=== PATIENT | male | born 1950 | race Two or more races ===

== ENCOUNTER 2023-09-27 16:28 | Inpatient (IN) | payer OTHER ==
[2023-09-27 20:29] VITALS: BMI 26.6
[2023-09-27] MEDS ORDERED: guaiFENesin 600 MG TABLET.ER (FP) PO PRN (21:46)
[2023-09-27] MEDS ORDERED: POLYETHYLENE GLYCOL (HEALTHYLAX) 3350 17 GM PACKET PO PRN (21:46)
[2023-09-27] MEDS ORDERED: BENZOCAINE/MENTHOL (CHLORASEPTIC ) LOZENGE MM PRN (21:46)
[2023-09-27] MEDS ORDERED: NALOXONE HCL 0.4 MG/ML VIAL IM PRN (21:46)
[2023-09-27] MEDS ORDERED: IBUPROFEN 600 MG TABLET (FP) PO PRN (21:46)
[2023-09-27] MEDS ORDERED: BENZONATATE 200 MG CAPSULE PO PRN (21:46)
[2023-09-27] MEDS ORDERED: DICYCLOMINE HCL 10 MG CAPSULE PO PRN (21:46)
[2023-09-27] MEDS ORDERED: NALOXONE HCL (KLOXXADO) 8 MG SPRAY NS PRN (21:46)
[2023-09-27] MEDS ORDERED: MAG HYDROX/AL HYDROX/SIMETH 30 ML UNIT-DOSE CUP PO PRN (21:46)
[2023-09-27] MEDS ORDERED: BISMUTH SUBSALICYLATE 524 MG/30 ML PO PRN (21:46)
[2023-09-27] MEDS ORDERED: MAGNESIUM HYDROX 2400MG/30ML ORAL SUSPENSION 30 ML CUP PO PRN (21:46)
[2023-09-27] MEDS ORDERED: LOPERAMIDE HCL 2 MG CAPSULE PO PRN (21:46)
[2023-09-27] MEDS ORDERED: NICOTINE POLACRILEX 2 MG GUM BUC PRN (21:46)
[2023-09-27] MEDS ORDERED: ONDANSETRON *ODT* 4 MG TABLET SL PRN (21:46)
[2023-09-27] MEDS ORDERED: ACETAMINOPHEN 325 MG TABLET (FP) PO PRN (21:46)
[2023-09-27] MEDS ORDERED: IBUPROFEN 400 MG TABLET (FP) PO PRN (21:46)
[2023-09-27] MEDS: THIAMINE HCL 100 MG TABLET (FP) PO SCH (23:46)
[2023-09-27] MEDS: MELATONIN 5 MG TABLETS PO SCH (23:46)
[2023-09-28] MEDS ORDERED: LORazepam 1 MG TABLET PO PRN (09:47)
[2023-09-28] MEDS: PRENATAL VITAMINS W/ FOLIC ACID TABLET (FP) PO SCH (10:40)
[2023-09-28] MEDS: LORazepam 2 MG TABLET PO SCH ×3 (10:56→22:25)
[2023-09-28 11:43] LABS: HEMATOCRIT 35.7 % (35.4-49); MCH 32.3 pg (25.7-33.7); MCHC 33.6 g/dl (32.0-35.9); MEAN PLT VOLUME 8.3 fl (7.5-11.1); PLATELET COUNT 197 10^3/uL (134-434); RBC 3.72 M/mm3 (4.00-5.60); RDW 14.3 % (11.9-15.9); WHITE BLOOD COUNT 5.2 K/mm3 (4.0-10.0)
[2023-09-28 11:45] LABS: CHLORIDE 105 mmol/L (98-107); SODIUM 141 mmol/L (136-145)
[2023-09-28 11:48] LABS: CALCIUM 9.4 mg/dL (8.5-10.1)
[2023-09-28 11:49] LABS: ALBUMIN 3.9 g/dl (3.4-5.0); ANION GAP 6 mmol/L (4-13); BLOOD UREA NITROGEN 39.1 mg/dL (7-18); CO2 30 mmol/L (21-32); GLUCOSE,RANDOM 92 mg/dL (74-106)
[2023-09-28 11:52] LABS: CREATININE 1.6 mg/dL (0.55-1.3); SGOT/AST 50 U/L (15-37); SGPT/ALT 22 U/L (13-61)
[2023-09-28 11:54] LABS: BILIRUBIN,TOTAL 0.2 mg/dL (0.2-1); TOT PROT 7.7 g/dl (6.4-8.2)
[2023-09-28 11:55] LABS: ALK PHOS 128 U/L (45-117)
[2023-09-28] MEDS ORDERED: FLU VACCINE (FLULAVAL) PF 60 MCG/0.5 ML SYRINGE 2023-2024 IM ONE (12:00)
[2023-09-28] MEDS ORDERED: cloNIDine HCL 0.1 MG TABLET PO ONE (17:08)
[2023-09-28] MEDS: THIAMINE HCL 100 MG TABLET (FP) PO SCH (22:25)
[2023-09-28] MEDS: MELATONIN 5 MG TABLETS PO SCH (22:25)
[2023-09-29] MEDS: LORazepam 1 MG TABLET PO SCH ×4 (05:20→22:18)
[2023-09-29] MEDS: PRENATAL VITAMINS W/ FOLIC ACID TABLET (FP) PO SCH (10:24)
[2023-09-29] MEDS: methaDONE 40 MG, methaDONE 10 MG PO SCH (10:24)
[2023-09-29] MEDS: amLODIPine BESYLATE 5 MG TABLET (FP) PO SCH (17:19)
[2023-09-29] MEDS: MELATONIN 5 MG TABLETS PO SCH (22:18)
[2023-09-29] MEDS: THIAMINE HCL 100 MG TABLET (FP) PO SCH (22:18)
[2023-09-30] MEDS: LORazepam 0.5 MG TABLET PO SCH ×4 (05:41→22:16)
[2023-09-30] MEDS: methaDONE 40 MG, methaDONE 10 MG PO SCH (05:42)
[2023-09-30] MEDS: amLODIPine BESYLATE 5 MG TABLET (FP) PO SCH (10:04)
[2023-09-30] MEDS: PRENATAL VITAMINS W/ FOLIC ACID TABLET (FP) PO SCH (10:04)
[2023-09-30 10:25] LABS: BLOOD UREA NITROGEN 26.7 mg/dL (7-18)
[2023-09-30 10:32] LABS: CREATININE 1.2 mg/dL (0.55-1.3)
[2023-09-30] MEDS ORDERED: cloNIDine HCL 0.1 MG TABLET PO PRN (10:40)
[2023-09-30] MEDS ORDERED: LISINOPRIL 10 MG TABLET PO ONE (17:33)
[2023-09-30] MEDS ORDERED: ATORVASTATIN CA 10 MG TABLET (FP) PO SCH (22:00)
[2023-09-30] MEDS: THIAMINE HCL 100 MG TABLET (FP) PO SCH (22:16)
[2023-09-30] MEDS: MELATONIN 5 MG TABLETS PO SCH (22:16)
[2023-10-01] MEDS ORDERED: LORazepam 0.5 MG TABLET PO PRN
[2023-10-01] MEDS ORDERED: LORazepam 0.5 MG TABLET PO ONE (05:00)
[2023-10-01] MEDS: methaDONE 40 MG, methaDONE 10 MG PO SCH (05:29)
[2023-10-01 08:59] VITALS: RESP 16
[2023-10-01] MEDS: PRENATAL VITAMINS W/ FOLIC ACID TABLET (FP) PO SCH (09:21)
[2023-10-01] MEDS ORDERED: FUROSEMIDE 20 MG TABLET (FP) PO SCH (10:00)
[2023-10-01] MEDS ORDERED: NIFEdipine E.R 60 MG TABLET PO SCH (10:00)
[2023-10-01 12:49] VITALS: BP 160/79; PULSE 61; TEMP 97.6
== END 2023-10-01 13:56 | disposition other institution (70) | DRG 773 ==
LOC: YASAS 16:28 → Y3N 23:05
PROVIDERS: ADMIT Allergy & Immunology; ATTEND Surgery
PROC: HZ2ZZZZ Detoxification Services for Substance Abuse Treatment (ICD-10-PCS; principal; 2023-09-27)
DX: F10.230 Alcohol dependence with withdrawal, uncomplicated (principal); F11.20 Opioid dependence, uncomplicated; I10 Essential (primary) hypertension; E78.5 Hyperlipidemia, unspecified; K21.9 Gastro-esophageal reflux disease without esophagitis; R79.89 Other specified abnormal findings of blood chemistry; Z86.11 Personal history of tuberculosis; Z87.891 Personal history of nicotine dependence
CPT/HCPCS: 36415; 71046-TC-FY; 80048; 80053; 80307; 85027; 86780; 87635; 90686; 93005; 93010; G0008

== ENCOUNTER 2023-10-01 14:37 | Inpatient (IN) | payer OTHER ==
[2023-10-01 14:55] VITALS: RESP 18
[2023-10-01] MEDS ORDERED: guaiFENesin 600 MG TABLET.ER (FP) PO PRN (15:08)
[2023-10-01] MEDS ORDERED: LOPERAMIDE HCL 2 MG CAPSULE PO PRN (15:08)
[2023-10-01] MEDS ORDERED: hydrOXYzine PAMOATE 25 MG CAPSULE (FP) PO PRN (15:08)
[2023-10-01] MEDS ORDERED: POLYETHYLENE GLYCOL (HEALTHYLAX) 3350 17 GM PACKET PO PRN (15:08)
[2023-10-01] MEDS ORDERED: METHOCARBAMOL 500 MG TABLET PO PRN (15:08)
[2023-10-01] MEDS ORDERED: NALOXONE HCL 0.4 MG/ML VIAL IVPUSH PRN (15:08)
[2023-10-01] MEDS ORDERED: BENZONATATE 200 MG CAPSULE PO PRN (15:08)
[2023-10-01] MEDS ORDERED: COLLOIDAL OATMEAL 1 BAR EACH TP PRN (15:08)
[2023-10-01] MEDS ORDERED: NALOXONE HCL (KLOXXADO) 8 MG SPRAY NS PRN (15:08)
[2023-10-01] MEDS ORDERED: BENZOCAINE/MENTHOL (CHLORASEPTIC ) LOZENGE MM PRN (15:08)
[2023-10-01] MEDS: PRENATAL VITAMINS W/ FOLIC ACID TABLET (FP) PO SCH (15:48)
[2023-10-01] MEDS: MELATONIN 5 MG TABLETS PO SCH (21:17)
[2023-10-01] MEDS: ATORVASTATIN CA 10 MG TABLET (FP) PO SCH (21:17)
[2023-10-01] MEDS: THIAMINE HCL 100 MG TABLET (FP) PO SCH (21:17)
[2023-10-01] MEDS: IBUPROFEN 600 MG TABLET (FP) PO PRN (21:19)
[2023-10-02] MEDS ORDERED: methaDONE HCL 10 MG TABLET PO SCH (06:00)
[2023-10-02] MEDS: methaDONE 40 MG, methaDONE 10 MG PO SCH (06:07)
[2023-10-02] MEDS: PRENATAL VITAMINS W/ FOLIC ACID TABLET (FP) PO SCH (09:30)
[2023-10-02] MEDS: FUROSEMIDE 20 MG TABLET (FP) PO SCH (09:31)
[2023-10-02] MEDS: NIFEdipine E.R 60 MG TABLET PO SCH (09:31)
[2023-10-02 11:22] LABS: INR 1.02 (0.83-1.09); PROTHROMBIN TIME (PATIENT) 11.8 SEC (9.7-13.0)
[2023-10-02] MEDS: THIAMINE HCL 100 MG TABLET (FP) PO SCH (21:03)
[2023-10-02] MEDS: ATORVASTATIN CA 10 MG TABLET (FP) PO SCH (21:03)
[2023-10-02] MEDS: MELATONIN 5 MG TABLETS PO SCH (21:03)
[2023-10-02] MEDS: IBUPROFEN 600 MG TABLET (FP) PO PRN (21:05)
[2023-10-03] MEDS: methaDONE 40 MG, methaDONE 10 MG PO SCH (06:00)
[2023-10-03] MEDS: NIFEdipine E.R 60 MG TABLET PO SCH (09:49)
[2023-10-03] MEDS: PRENATAL VITAMINS W/ FOLIC ACID TABLET (FP) PO SCH (09:49)
[2023-10-03] MEDS: FUROSEMIDE 20 MG TABLET (FP) PO SCH (09:50)
[2023-10-03] MEDS: MAGNESIUM HYDROX 2400MG/30ML ORAL SUSPENSION 30 ML CUP PO PRN ×2 (09:51→21:27)
[2023-10-03] MEDS: ATORVASTATIN CA 10 MG TABLET (FP) PO SCH (21:25)
[2023-10-03] MEDS: MELATONIN 5 MG TABLETS PO SCH (21:26)
[2023-10-03] MEDS: THIAMINE HCL 100 MG TABLET (FP) PO SCH (21:26)
[2023-10-04] MEDS: methaDONE 40 MG, methaDONE 10 MG PO SCH (06:17)
[2023-10-04] MEDS: IBUPROFEN 400 MG TABLET (FP) PO PRN ×2 (06:19→21:10)
[2023-10-04] MEDS: PRENATAL VITAMINS W/ FOLIC ACID TABLET (FP) PO SCH (09:42)
[2023-10-04] MEDS: NIFEdipine E.R 60 MG TABLET PO SCH (09:42)
[2023-10-04] MEDS: FUROSEMIDE 20 MG TABLET (FP) PO SCH (09:42)
[2023-10-04] MEDS: IBUPROFEN 600 MG TABLET (FP) PO PRN (09:44)
[2023-10-04] MEDS: MELATONIN 5 MG TABLETS PO SCH (21:09)
[2023-10-04] MEDS: ATORVASTATIN CA 10 MG TABLET (FP) PO SCH (21:09)
[2023-10-04] MEDS: THIAMINE HCL 100 MG TABLET (FP) PO SCH (21:09)
[2023-10-05] MEDS: methaDONE 40 MG, methaDONE 10 MG PO SCH (05:48)
[2023-10-05] MEDS: FUROSEMIDE 20 MG TABLET (FP) PO SCH (09:26)
[2023-10-05] MEDS: PRENATAL VITAMINS W/ FOLIC ACID TABLET (FP) PO SCH (09:26)
[2023-10-05] MEDS: NIFEdipine E.R 60 MG TABLET PO SCH (09:26)
[2023-10-05] MEDS: MAGNESIUM HYDROX 2400MG/30ML ORAL SUSPENSION 30 ML CUP PO PRN (09:27)
[2023-10-05] MEDS: THIAMINE HCL 100 MG TABLET (FP) PO SCH (21:04)
[2023-10-05] MEDS: MELATONIN 5 MG TABLETS PO SCH (21:04)
[2023-10-05] MEDS: ATORVASTATIN CA 10 MG TABLET (FP) PO SCH (21:04)
[2023-10-06] MEDS: methaDONE 40 MG, methaDONE 10 MG PO SCH (06:24)
[2023-10-06] MEDS: NIFEdipine E.R 60 MG TABLET PO SCH (09:31)
[2023-10-06] MEDS: FUROSEMIDE 20 MG TABLET (FP) PO SCH (09:31)
[2023-10-06] MEDS: PRENATAL VITAMINS W/ FOLIC ACID TABLET (FP) PO SCH (09:31)
[2023-10-06] MEDS: MAGNESIUM HYDROX 2400MG/30ML ORAL SUSPENSION 30 ML CUP PO PRN (09:33)
[2023-10-06] MEDS: MELATONIN 5 MG TABLETS PO SCH (21:06)
[2023-10-06] MEDS: THIAMINE HCL 100 MG TABLET (FP) PO SCH (21:07)
[2023-10-06] MEDS: ATORVASTATIN CA 10 MG TABLET (FP) PO SCH (21:07)
[2023-10-06] MEDS: IBUPROFEN 600 MG TABLET (FP) PO PRN (21:08)
[2023-10-07] MEDS: methaDONE 40 MG, methaDONE 10 MG PO SCH (06:11)
[2023-10-07] MEDS: PRENATAL VITAMINS W/ FOLIC ACID TABLET (FP) PO SCH (09:32)
[2023-10-07] MEDS: NIFEdipine E.R 60 MG TABLET PO SCH (09:32)
[2023-10-07] MEDS: FUROSEMIDE 20 MG TABLET (FP) PO SCH (09:33)
[2023-10-07] MEDS: IBUPROFEN 600 MG TABLET (FP) PO PRN (18:51)
[2023-10-07] MEDS: MELATONIN 5 MG TABLETS PO SCH (21:21)
[2023-10-07] MEDS: ATORVASTATIN CA 10 MG TABLET (FP) PO SCH (21:21)
[2023-10-07] MEDS: THIAMINE HCL 100 MG TABLET (FP) PO SCH (21:22)
[2023-10-08] MEDS: methaDONE 40 MG, methaDONE 10 MG PO SCH (06:15)
[2023-10-08] MEDS: NIFEdipine E.R 60 MG TABLET PO SCH (09:45)
[2023-10-08] MEDS: PRENATAL VITAMINS W/ FOLIC ACID TABLET (FP) PO SCH (09:45)
[2023-10-08] MEDS: FUROSEMIDE 20 MG TABLET (FP) PO SCH (09:45)
[2023-10-08] MEDS: IBUPROFEN 600 MG TABLET (FP) PO PRN (09:48)
[2023-10-08] MEDS: MAG HYDROX/AL HYDROX/SIMETH 30 ML UNIT-DOSE CUP PO PRN ×2 (14:11→19:19)
[2023-10-08] MEDS: diphenhydrAMINE HCL 25 MG CAPSULE (FP) PO PRN (15:37)
[2023-10-08] MEDS: ATORVASTATIN CA 10 MG TABLET (FP) PO SCH (21:03)
[2023-10-08] MEDS: THIAMINE HCL 100 MG TABLET (FP) PO SCH (21:03)
[2023-10-08] MEDS: SUVOREXANT 10 MG TABLET PO PRN (21:05)
[2023-10-09] MEDS: methaDONE 40 MG, methaDONE 10 MG PO SCH (05:58)
[2023-10-09] MEDS: PRENATAL VITAMINS W/ FOLIC ACID TABLET (FP) PO SCH (09:45)
[2023-10-09] MEDS: diphenhydrAMINE HCL 25 MG CAPSULE (FP) PO PRN ×2 (09:46→15:58)
[2023-10-09] MEDS: NIFEdipine E.R 60 MG TABLET PO SCH (09:46)
[2023-10-09] MEDS: FUROSEMIDE 20 MG TABLET (FP) PO SCH (09:47)
[2023-10-09 11:14] LABS: BASO % 0.4 % (0-2.0); EOS % 5.2 % (0-4.5); HEMATOCRIT 34.6 % (35.4-49); HEMOGLOBIN 11.2 GM/dL (11.7-16.9); LYMPH % 12.3 % (8-40); MCH 31.7 pg (25.7-33.7); MCHC 32.3 g/dl (32.0-35.9); MEAN CELL VOLUME 98.2 fl (80-96); MEAN PLT VOLUME 8.9 fl (7.5-11.1); NEUT % 69.1 % (42.8-82.8); PLATELET COUNT 301 10^3/uL (134-434); RBC 3.53 M/mm3 (4.00-5.60); RDW 13.6 % (11.9-15.9)
[2023-10-09 12:19] LABS: POTASSIUM 5.3 mmol/L (3.5-5.1)
[2023-10-09 12:20] LABS: CALCIUM 8.8 mg/dL (8.5-10.1)
[2023-10-09 12:21] LABS: ALBUMIN 3.8 g/dl (3.4-5.0); BLOOD UREA NITROGEN 27.1 mg/dL (7-18)
[2023-10-09 12:24] LABS: CREATININE 1.5 mg/dL (0.55-1.3)
[2023-10-09 12:26] LABS: BILIRUBIN,TOTAL 0.4 mg/dL (0.2-1); TOT PROT 7.5 g/dl (6.4-8.2)
[2023-10-09] MEDS ORDERED: LACTULOSE 20 GM/30 ML UDC (FOR ORAL USE ONLY) PO PRN (14:14)
[2023-10-09] MEDS: MAG HYDROX/AL HYDROX/SIMETH 30 ML UNIT-DOSE CUP PO PRN (14:24)
[2023-10-09] MEDS ORDERED: SODIUM ZIRCONIUM CYCLOSILICATE (LOKELMA) 10 GM PACKET PO ONE (14:31)
[2023-10-09] MEDS ORDERED: HYDROCORTISONE 1% TOPICAL CREAM 30 GM TUBE TP PRN (15:36)
[2023-10-09] MEDS: ATORVASTATIN CA 10 MG TABLET (FP) PO SCH (21:21)
[2023-10-09] MEDS: THIAMINE HCL 100 MG TABLET (FP) PO SCH (21:21)
[2023-10-09] MEDS: LACTULOSE 20 GM/30 ML UDC (FOR ORAL USE ONLY) PO SCH (21:22)
[2023-10-09] MEDS: SUVOREXANT 10 MG TABLET PO PRN (21:23)
[2023-10-10] MEDS: LACTULOSE 20 GM/30 ML UDC (FOR ORAL USE ONLY) PO SCH ×3 (05:51→21:52)
[2023-10-10] MEDS: methaDONE 40 MG, methaDONE 10 MG PO SCH (05:51)
[2023-10-10] MEDS: diphenhydrAMINE HCL 25 MG CAPSULE (FP) PO PRN (05:53)
[2023-10-10] MEDS: PRENATAL VITAMINS W/ FOLIC ACID TABLET (FP) PO SCH (09:33)
[2023-10-10] MEDS: NIFEdipine E.R 60 MG TABLET PO SCH (09:33)
[2023-10-10] MEDS: FUROSEMIDE 20 MG TABLET (FP) PO SCH (09:33)
[2023-10-10 11:59] LABS: POTASSIUM 4.6 mmol/L (3.5-5.1)
[2023-10-10 12:00] LABS: CALCIUM 8.3 mg/dL (8.5-10.1)
[2023-10-10 12:01] LABS: ALBUMIN 3.7 g/dl (3.4-5.0); BLOOD UREA NITROGEN 27.9 mg/dL (7-18)
[2023-10-10 12:04] LABS: CREATININE 1.6 mg/dL (0.55-1.3)
[2023-10-10 12:05] LABS: TOT PROT 7.2 g/dl (6.4-8.2)
[2023-10-10 12:06] LABS: BILIRUBIN,TOTAL 0.4 mg/dL (0.2-1)
[2023-10-10 13:08] VITALS: BP 129/58; PULSE 102; TEMP 99.4
[2023-10-10] MEDS: ATORVASTATIN CA 10 MG TABLET (FP) PO SCH (21:53)
[2023-10-10] MEDS: THIAMINE HCL 100 MG TABLET (FP) PO SCH (21:53)
[2023-10-11] MEDS: LACTULOSE 20 GM/30 ML UDC (FOR ORAL USE ONLY) PO SCH (07:08)
[2023-10-11] MEDS: methaDONE 40 MG, methaDONE 10 MG PO SCH (07:09)
== END 2023-10-11 07:00 | disposition short-term general hospital (02) | DRG 772 ==
LOC: YASAS 14:37 → Y5N 14:38
PROVIDERS: ADMIT Allergy & Immunology; ATTEND Psychiatry & Neurology Pain Medicine
PROC: HZ42ZZZ Group Counseling for Substance Abuse Treatment, Cognitive-Behavioral (ICD-10-PCS; principal; 2023-10-01)
DX: F10.20 Alcohol dependence, uncomplicated (principal); F11.20 Opioid dependence, uncomplicated; F41.9 Anxiety disorder, unspecified; E72.20 Disorder of urea cycle metabolism, unspecified; E87.5 Hyperkalemia; I87.2 Venous insufficiency (chronic) (peripheral); I10 Essential (primary) hypertension; E78.5 Hyperlipidemia, unspecified; R21 Rash and other nonspecific skin eruption; R60.0 Localized edema
CPT/HCPCS: 36415; 80053; 82140; 85025; 85610

== ENCOUNTER 2023-10-10 14:11 | Inpatient (IN) | payer OTHER ==
[2023-10-10 16:30] LABS: BASO % 0.8 % (0-2.0); HEMATOCRIT 31.1 % (35.4-49); HEMOGLOBIN 10.3 GM/dL (11.7-16.9); LYMPH % 10.1 % (8-40); MCH 31.6 pg (25.7-33.7); MCHC 33.1 g/dl (32.0-35.9); MEAN CELL VOLUME 95.3 fl (80-96); MEAN PLT VOLUME 8.6 fl (7.5-11.1); MONO % 10.6 % (3.8-10.2); NEUT % 75.5 % (42.8-82.8); PLATELET COUNT 260 10^3/uL (134-434); RBC 3.26 M/mm3 (4.00-5.60); RDW 13.4 % (11.9-15.9); WHITE BLOOD COUNT 8.4 K/mm3 (4.0-10.0)
[2023-10-10 16:41] LABS: POTASSIUM 4.4 mmol/L (3.5-5.1)
[2023-10-10 16:43] LABS: ALBUMIN 3.4 g/dl (3.4-5.0); CALCIUM 8.4 mg/dL (8.5-10.1); MAGNESIUM 2.9 mg/dL (1.8-2.4)
[2023-10-10 16:44] LABS: BLOOD UREA NITROGEN 30.4 mg/dL (7-18)
[2023-10-10 16:46] LABS: CREATININE 1.6 mg/dL (0.55-1.3)
[2023-10-10 16:48] LABS: BILIRUBIN,TOTAL 0.3 mg/dL (0.2-1); TOT PROT 6.8 g/dl (6.4-8.2)
[2023-10-10 16:53] LABS: EPI CELLS 2 /uL (0-25.1); HYALINE CASTS 0 /uL (0-3.1); URINE APPEARANCE CLEAR; URINE BACTERIA 1 /uL (0-1359); URINE BILIRUBIN NEGATIVE (NEGATIVE); URINE COLOR YELLOW; URINE GLUCOSE (UA) TRACE (NEGATIVE); URINE KETONE NEGATIVE (NEGATIVE); URINE LEUK ESTERASE NEGATIVE (NEGATIVE); URINE NITRITE NEGATIVE (NEGATIVE); URINE PROTEIN 1+ (NEGATIVE); URINE RBC 4 /uL (0-23.9); URINE UROBILINOGEN 0.2 mg/dL (0.2-1.0); URINE WBC 3 /uL (0-25.8)
[2023-10-10] MEDS ORDERED: FAMOTIDINE 20 MG/50 ML IVPB 20 MG/50 ML MG IVPB ONE (17:35)
[2023-10-10] MEDS ORDERED: MAG HYDROX/AL HYDROX/SIMETH 30 ML UNIT-DOSE CUP PO ONE (17:35)
[2023-10-10] MEDS ORDERED: MAG HYDROX/AL HYDROX/SIMETH 30 ML UNIT-DOSE CUP ONE (17:37)
[2023-10-10] MEDS ORDERED: FAMOTIDINE 10 MG/ML VIAL IVPB ONE (17:38)
[2023-10-10 17:49] LABS: INR 1.1 (0.83-1.09); PROTHROMBIN TIME (PATIENT) 12.7 SEC (9.7-13.0)
[2023-10-10 17:52] LABS: ACTIVATED PTT 28.4 SECONDS (25.2-36.5)
[2023-10-10] MEDS ORDERED: CLINDAMYCIN 600MG PREMIX IVPB 600 MG/50 ML BAG IVPB ONE ×2 (18:24→19:47)
[2023-10-11] MEDS ORDERED: VANCOMYCIN 1,000 MG in DEXTROSE 5%-WATER - 250 ML IVPB SCH (01:00)
[2023-10-11] MEDS ORDERED: VANCOMYCIN 1 GRAM (PRE-DOCKED) 1,000 MG/250 ML BAG IVPB ONE (02:00)
[2023-10-11] MEDS ORDERED: VANCOMYCIN 1 GRAM (PRE-DOCKED) 1,000 MG/250 ML BAG IVPB SCH (02:00)
[2023-10-11 07:49] LABS: BASO % 0.8 % (0-2.0); EOS % 8.1 % (0-4.5); HEMATOCRIT 30.3 % (35.4-49); HEMOGLOBIN 10.1 GM/dL (11.7-16.9); LYMPH % 12.8 % (8-40); MCH 32.3 pg (25.7-33.7); MCHC 33.4 g/dl (32.0-35.9); MEAN CELL VOLUME 96.5 fl (80-96); MEAN PLT VOLUME 8.7 fl (7.5-11.1); MONO % 12.5 % (3.8-10.2); NEUT % 65.8 % (42.8-82.8); PLATELET COUNT 254 10^3/uL (134-434); RBC 3.14 M/mm3 (4.00-5.60); RDW 13.2 % (11.9-15.9); WHITE BLOOD COUNT 6.5 K/mm3 (4.0-10.0)
[2023-10-11 08:10] LABS: POTASSIUM 4.5 mmol/L (3.5-5.1)
[2023-10-11] MEDS ORDERED: methaDONE HCL 10 MG TABLET ONE (08:32)
[2023-10-11 09:07] LABS: CALCIUM 8.4 mg/dL (8.5-10.1)
[2023-10-11 09:08] LABS: ALBUMIN 3.1 g/dl (3.4-5.0); BLOOD UREA NITROGEN 27.8 mg/dL (7-18)
[2023-10-11 09:10] LABS: CREATININE 1.8 mg/dL (0.55-1.3)
[2023-10-11 09:11] LABS: BILIRUBIN,TOTAL 0.3 mg/dL (0.2-1)
[2023-10-11 09:12] LABS: TOT PROT 6.3 g/dl (6.4-8.2)
[2023-10-11 10:01] LABS: OPIATES, URI NEGATIVE (NEGATIVE); PHENCYCLIDINE,URINE NEGATIVE (NEGATIVE)
[2023-10-11 10:02] LABS: COCAINE, UR NEGATIVE (NEGATIVE)
[2023-10-11 10:11] LABS: URINE BENZODIAZEPINES NEGATIVE (NEGATIVE)
[2023-10-11 10:15] LABS: METHADONE, UR POSITIVE (NEGATIVE); URINE AMPHETAMINES NEGATIVE (NEGATIVE); URINE BARBITURATES NEGATIVE (NEGATIVE)
[2023-10-11] MEDS: HEPARIN NA (PORCINE) 5,000 UNITS/ML 1ML VIAL SQ SCH ×2 (15:11→22:50)
[2023-10-11] MEDS: CEFTRIAXONE 2 GM in DEXTROSE 5%-WATER 100 ML IVPB SCH (16:43)
[2023-10-11] MEDS ORDERED: diphenhydrAMINE HCL 25 MG CAPSULE (FP) PO ONE (23:21)
[2023-10-12] MEDS: HEPARIN NA (PORCINE) 5,000 UNITS/ML 1ML VIAL SQ SCH ×3 (05:41→21:44)
[2023-10-12] MEDS: CEFTRIAXONE 2 GM in DEXTROSE 5%-WATER 100 ML IVPB SCH (09:56)
[2023-10-12] MEDS: TRIAMCINOLONE ACET 0.1% 60 ML LOTION TP SCH (10:09)
[2023-10-12 10:12] LABS: BASO % 0.8 % (0-2.0); EOS % 9.4 % (0-4.5); HEMATOCRIT 30.1 % (35.4-49); HEMOGLOBIN 10.3 GM/dL (11.7-16.9); LYMPH % 14.1 % (8-40); MCH 32.4 pg (25.7-33.7); MCHC 34.2 g/dl (32.0-35.9); MEAN CELL VOLUME 94.7 fl (80-96); MEAN PLT VOLUME 8.9 fl (7.5-11.1); MONO % 10.2 % (3.8-10.2); NEUT % 65.5 % (42.8-82.8); PLATELET COUNT 241 10^3/uL (134-434); RBC 3.18 M/mm3 (4.00-5.60); RDW 13.1 % (11.9-15.9); WHITE BLOOD COUNT 6.6 K/mm3 (4.0-10.0)
[2023-10-12 10:21] LABS: POTASSIUM 4.1 mmol/L (3.5-5.1)
[2023-10-12 10:24] LABS: CALCIUM 8.8 mg/dL (8.5-10.1)
[2023-10-12 10:25] LABS: ALBUMIN 3.2 g/dl (3.4-5.0); BLOOD UREA NITROGEN 27.5 mg/dL (7-18)
[2023-10-12 10:28] LABS: CREATININE 1.6 mg/dL (0.55-1.3)
[2023-10-12 10:29] LABS: BILIRUBIN,TOTAL 0.3 mg/dL (0.2-1); TOT PROT 6.5 g/dl (6.4-8.2)
[2023-10-12] MEDS ORDERED: methaDONE HCL 10 MG TABLET PO SCH (10:30)
[2023-10-12] MEDS ORDERED: methaDONE HCL 40 MG DISPERSABLE TABLET PO ONE (13:00)
[2023-10-12] MEDS: PETROLATUM, WHITE 30 GM TUBE TP SCH (17:23)
[2023-10-12] MEDS: hydrALAZINE HCL 10 MG TABLET PO PRN (21:44)
[2023-10-12] MEDS: CARVEDILOL 3.125 MG TABLET (FP) PO SCH (21:44)
[2023-10-13] MEDS: HEPARIN NA (PORCINE) 5,000 UNITS/ML 1ML VIAL SQ SCH ×3 (05:24→22:33)
[2023-10-13 06:42] VITALS: RESP 18
[2023-10-13] MEDS: hydrALAZINE HCL 10 MG TABLET PO PRN ×2 (06:43→17:58)
[2023-10-13 08:55] LABS: BASO % 0.7 % (0-2.0); EOS % 10.1 % (0-4.5); HEMATOCRIT 31.5 % (35.4-49); HEMOGLOBIN 10.4 GM/dL (11.7-16.9); LYMPH % 13.2 % (8-40); MCH 31.9 pg (25.7-33.7); MEAN CELL VOLUME 96.7 fl (80-96); MEAN PLT VOLUME 8.3 fl (7.5-11.1); MONO % 11.3 % (3.8-10.2); NEUT % 64.7 % (42.8-82.8); PLATELET COUNT 274 10^3/uL (134-434); RBC 3.26 M/mm3 (4.00-5.60); RDW 13.2 % (11.9-15.9); WHITE BLOOD COUNT 6.1 K/mm3 (4.0-10.0)
[2023-10-13 09:06] LABS: POTASSIUM 4.8 mmol/L (3.5-5.1)
[2023-10-13] MEDS: TRIAMCINOLONE ACET 0.1% 60 ML LOTION TP SCH ×2 (09:06→09:07)
[2023-10-13 09:09] LABS: ALBUMIN 3.5 g/dl (3.4-5.0); BLOOD UREA NITROGEN 25.9 mg/dL (7-18); CALCIUM 9.4 mg/dL (8.5-10.1)
[2023-10-13] MEDS: CEFTRIAXONE 2 GM in DEXTROSE 5%-WATER 100 ML IVPB SCH (09:10)
[2023-10-13] MEDS: CARVEDILOL 3.125 MG TABLET (FP) PO SCH ×2 (09:11→22:33)
[2023-10-13 09:12] LABS: CREATININE 1.6 mg/dL (0.55-1.3)
[2023-10-13] MEDS: PETROLATUM, WHITE 30 GM TUBE TP SCH (09:13)
[2023-10-13 09:14] LABS: BILIRUBIN,TOTAL 0.5 mg/dL (0.2-1); TOT PROT 7.1 g/dl (6.4-8.2)
[2023-10-13] MEDS ORDERED: methaDONE HCL 10 MG TABLET PO SCH ×2 (09:45→14:55)
[2023-10-13] MEDS: methaDONE 40 MG, methaDONE 10 MG PO SCH (15:19)
[2023-10-13 16:46] VITALS: BMI 28.2
[2023-10-14] MEDS: methaDONE 40 MG, methaDONE 10 MG PO SCH (06:14)
[2023-10-14] MEDS: HEPARIN NA (PORCINE) 5,000 UNITS/ML 1ML VIAL SQ SCH ×3 (06:16→21:59)
[2023-10-14 09:41] LABS: BASO % 0.6 % (0-2.0); EOS % 10.6 % (0-4.5); HEMOGLOBIN 10.7 GM/dL (11.7-16.9); LYMPH % 16.5 % (8-40); MCH 31.3 pg (25.7-33.7); MCHC 32.3 g/dl (32.0-35.9); MEAN CELL VOLUME 96.9 fl (80-96); MEAN PLT VOLUME 8.3 fl (7.5-11.1); MONO % 11.2 % (3.8-10.2); NEUT % 61.1 % (42.8-82.8); PLATELET COUNT 291 10^3/uL (134-434); RBC 3.41 M/mm3 (4.00-5.60); RDW 13.2 % (11.9-15.9); WHITE BLOOD COUNT 6.4 K/mm3 (4.0-10.0)
[2023-10-14 09:54] LABS: POTASSIUM 4.6 mmol/L (3.5-5.1)
[2023-10-14 09:58] LABS: CALCIUM 9.1 mg/dL (8.5-10.1)
[2023-10-14 09:59] LABS: ALBUMIN 3.5 g/dl (3.4-5.0); BLOOD UREA NITROGEN 26.3 mg/dL (7-18)
[2023-10-14 10:02] LABS: CREATININE 1.6 mg/dL (0.55-1.3)
[2023-10-14 10:04] LABS: BILIRUBIN,TOTAL 0.4 mg/dL (0.2-1); TOT PROT 7.4 g/dl (6.4-8.2)
[2023-10-14] MEDS: TRIAMCINOLONE ACET 0.1% 60 ML LOTION TP SCH (11:12)
[2023-10-14] MEDS: CARVEDILOL 3.125 MG TABLET (FP) PO SCH (11:18)
[2023-10-14] MEDS: CEFTRIAXONE 2 GM in DEXTROSE 5%-WATER 100 ML IVPB SCH (11:19)
[2023-10-14] MEDS: PETROLATUM, WHITE 30 GM TUBE TP SCH (11:19)
[2023-10-14] MEDS ORDERED: LORATADINE 10 MG TABLET PO SCH (12:15)
[2023-10-14] MEDS: BACITRACIN ZINC 15 GM TUBE TOPICAL OINTMENT TP SCH (15:15)
[2023-10-14] MEDS: hydrALAZINE HCL 10 MG TABLET PO PRN (15:28)
[2023-10-14 15:39] LABS: HIV INTERPRETATION NEGATIVE (NEGATIVE)
[2023-10-14] MEDS: ATORVASTATIN CA 20 MG TABLET (FP) PO SCH (21:59)
[2023-10-14] MEDS: LORATADINE 10 MG TABLET PO SCH (21:59)
[2023-10-15] MEDS: methaDONE 40 MG, methaDONE 10 MG PO SCH (05:57)
[2023-10-15] MEDS: HEPARIN NA (PORCINE) 5,000 UNITS/ML 1ML VIAL SQ SCH ×3 (05:58→21:34)
[2023-10-15 09:37] LABS: BASO % 0.7 % (0-2.0); EOS % 9.8 % (0-4.5); HEMATOCRIT 30.8 % (35.4-49); HEMOGLOBIN 10.5 GM/dL (11.7-16.9); LYMPH % 17.5 % (8-40); MCH 32.3 pg (25.7-33.7); MCHC 34.1 g/dl (32.0-35.9); MEAN CELL VOLUME 94.6 fl (80-96); MEAN PLT VOLUME 8.7 fl (7.5-11.1); MONO % 12.5 % (3.8-10.2); NEUT % 59.5 % (42.8-82.8); PLATELET COUNT 262 10^3/uL (134-434); RBC 3.25 M/mm3 (4.00-5.60); RDW 13.5 % (11.9-15.9); WHITE BLOOD COUNT 5.8 K/mm3 (4.0-10.0)
[2023-10-15 09:45] LABS: POTASSIUM 4.6 mmol/L (3.5-5.1)
[2023-10-15 09:54] LABS: CALCIUM 8.9 mg/dL (8.5-10.1)
[2023-10-15 09:55] LABS: ALBUMIN 3.4 g/dl (3.4-5.0); BLOOD UREA NITROGEN 23.3 mg/dL (7-18)
[2023-10-15 09:58] LABS: CREATININE 1.4 mg/dL (0.55-1.3)
[2023-10-15 09:59] LABS: BILIRUBIN,TOTAL 0.3 mg/dL (0.2-1)
[2023-10-15] MEDS: CEPHALEXIN MONOHYDRATE 500 MG CAPSULE (UD) PO SCH ×3 (11:09→21:34)
[2023-10-15] MEDS: ESCITALOPRAM OXALATE 10 MG TABLET PO SCH (11:09)
[2023-10-15] MEDS: FUROSEMIDE 20 MG TABLET (FP) PO SCH (11:09)
[2023-10-15] MEDS: LORATADINE 10 MG TABLET PO SCH ×2 (11:09→21:34)
[2023-10-15] MEDS: DOCUSATE SODIUM 100 MG CAPSULE (FP) PO SCH (11:10)
[2023-10-15] MEDS: NIFEdipine E.R 60 MG TABLET PO SCH (11:10)
[2023-10-15] MEDS: TRIAMCINOLONE ACET 0.1% 60 ML LOTION TP SCH (11:12)
[2023-10-15] MEDS: PETROLATUM, WHITE 30 GM TUBE TP SCH (11:13)
[2023-10-15] MEDS: BACITRACIN ZINC 15 GM TUBE TOPICAL OINTMENT TP SCH (13:22)
[2023-10-15] MEDS ORDERED: ACETAMINOPHEN 500 MG TABLET (FP) PO PRN (13:40)
[2023-10-15] MEDS: LOSARTAN POTASSIUM 50 MG TABLET PO SCH (15:18)
[2023-10-15] MEDS: SILVER SULFADIAZINE 1% TOP CREAM 50 GM JAR TP SCH (20:30)
[2023-10-15] MEDS: ATORVASTATIN CA 20 MG TABLET (FP) PO SCH (21:34)
[2023-10-16] MEDS: methaDONE 40 MG, methaDONE 10 MG PO SCH (06:16)
[2023-10-16] MEDS: CEPHALEXIN MONOHYDRATE 500 MG CAPSULE (UD) PO SCH ×2 (06:17→14:18)
[2023-10-16] MEDS: HEPARIN NA (PORCINE) 5,000 UNITS/ML 1ML VIAL SQ SCH ×2 (06:17→14:32)
[2023-10-16 09:57] LABS: BASO % 0.7 % (0-2.0); EOS % 8.7 % (0-4.5); HEMATOCRIT 31.9 % (35.4-49); HEMOGLOBIN 10.6 GM/dL (11.7-16.9); LYMPH % 16.3 % (8-40); MCHC 33.2 g/dl (32.0-35.9); MEAN CELL VOLUME 96.4 fl (80-96); MEAN PLT VOLUME 8.4 fl (7.5-11.1); MONO % 7.7 % (3.8-10.2); NEUT % 66.6 % (42.8-82.8); PLATELET COUNT 287 10^3/uL (134-434); RBC 3.31 M/mm3 (4.00-5.60); RDW 12.9 % (11.9-15.9); WHITE BLOOD COUNT 5.8 K/mm3 (4.0-10.0)
[2023-10-16 10:13] LABS: POTASSIUM 4.2 mmol/L (3.5-5.1)
[2023-10-16 10:21] LABS: BLOOD UREA NITROGEN 22.4 mg/dL (7-18)
[2023-10-16 10:22] LABS: BILIRUBIN,TOTAL 0.3 mg/dL (0.2-1); CALCIUM 8.9 mg/dL (8.5-10.1)
[2023-10-16 10:23] LABS: ALBUMIN 3.4 g/dl (3.4-5.0); CREATININE 1.5 mg/dL (0.55-1.3); TOT PROT 7.2 g/dl (6.4-8.2)
[2023-10-16] MEDS: LOSARTAN POTASSIUM 50 MG TABLET PO SCH (10:31)
[2023-10-16] MEDS: ESCITALOPRAM OXALATE 10 MG TABLET PO SCH (10:31)
[2023-10-16] MEDS: LORATADINE 10 MG TABLET PO SCH (10:31)
[2023-10-16] MEDS: FUROSEMIDE 20 MG TABLET (FP) PO SCH (10:31)
[2023-10-16] MEDS: DOCUSATE SODIUM 100 MG CAPSULE (FP) PO SCH (10:31)
[2023-10-16] MEDS: BACITRACIN ZINC 15 GM TUBE TOPICAL OINTMENT TP SCH (10:32)
[2023-10-16] MEDS: NIFEdipine E.R 60 MG TABLET PO SCH (10:32)
[2023-10-16] MEDS: TRIAMCINOLONE ACET 0.1% 60 ML LOTION TP SCH (10:32)
[2023-10-16] MEDS: PETROLATUM, WHITE 30 GM TUBE TP SCH (10:32)
[2023-10-16] MEDS: SILVER SULFADIAZINE 1% TOP CREAM 50 GM JAR TP SCH (10:32)
[2023-10-16 13:16] VITALS: BP 134/67; PULSE 71; TEMP 98
== END 2023-10-16 14:55 | disposition other institution (70) | DRG 383 ==
LOC: JER 14:11 → JERBED 20:41 → J5S 10-11 13:17
PROVIDERS: ADMIT Student in an Organized Health Care Education/Training Program; ATTEND Internal Medicine
DX: L03.115 Cellulitis of right lower limb (principal); E78.5 Hyperlipidemia, unspecified; I87.2 Venous insufficiency (chronic) (peripheral); I25.10 Atherosclerotic heart disease of native coronary artery without angina pectoris; L03.116 Cellulitis of left lower limb; F11.20 Opioid dependence, uncomplicated; R21 Rash and other nonspecific skin eruption; N18.9 Chronic kidney disease, unspecified; I12.9 Hypertensive chronic kidney disease with stage 1 through stage 4 chronic kidney disease, or unspecified chronic kidney disease
CPT/HCPCS: 36415; 76775-TC; 80048; 80053; 80307; 81003; 83605; 83735; 83880; 84484; 85025; 85610; 85730; 86705; 86803; 87040; 87077; 87086; 87340; 87389; 87517; 87522; 93005; 93010; 93306-TC; 93970-TC; 97116-GP; 97161-GP; 99285-25; J1644

== ENCOUNTER 2023-10-16 16:53 | Inpatient (IN) | payer OTHER ==
[2023-10-16 17:39] VITALS: BMI 27.7
[2023-10-16] MEDS ORDERED: ACETAMINOPHEN 500 MG TABLET (FP) PO PRN (19:42)
[2023-10-16] MEDS ORDERED: MAGNESIUM HYDROX 2400MG/30ML ORAL SUSPENSION 30 ML CUP PO PRN (19:44)
[2023-10-16] MEDS ORDERED: POLYETHYLENE GLYCOL (HEALTHYLAX) 3350 17 GM PACKET PO PRN (19:44)
[2023-10-16] MEDS ORDERED: COLLOIDAL OATMEAL 1 BAR EACH TP PRN (19:44)
[2023-10-16] MEDS ORDERED: BENZOCAINE/MENTHOL (CHLORASEPTIC ) LOZENGE MM PRN (19:44)
[2023-10-16] MEDS ORDERED: BENZONATATE 200 MG CAPSULE PO PRN (19:44)
[2023-10-16] MEDS ORDERED: NALOXONE HCL (KLOXXADO) 8 MG SPRAY NS PRN (19:44)
[2023-10-16] MEDS ORDERED: guaiFENesin 600 MG TABLET.ER (FP) PO PRN (19:44)
[2023-10-16] MEDS ORDERED: LOPERAMIDE HCL 2 MG CAPSULE PO PRN (19:44)
[2023-10-16] MEDS ORDERED: NALOXONE HCL 0.4 MG/ML VIAL IVPUSH PRN (19:44)
[2023-10-16] MEDS ORDERED: P-EPHED 60MG/TRIPROLIDI 2.5MG TABLET PO PRN (19:44)
[2023-10-16] MEDS ORDERED: ACETAMINOPHEN 325 MG TABLET (FP) PO PRN (19:44)
[2023-10-16] MEDS: THIAMINE HCL 100 MG TABLET (FP) PO SCH (23:46)
[2023-10-16] MEDS: CEPHALEXIN MONOHYDRATE 500 MG CAPSULE (UD) PO SCH (23:47)
[2023-10-17] MEDS: CEPHALEXIN MONOHYDRATE 500 MG CAPSULE (UD) PO SCH ×3 (06:27→21:02)
[2023-10-17] MEDS ORDERED: methaDONE HCL 40 MG DISPERSABLE TABLET PO SCH (07:00)
[2023-10-17] MEDS: methaDONE 40 MG, methaDONE 10 MG PO SCH (07:15)
[2023-10-17] MEDS: PRENATAL VITAMINS W/ FOLIC ACID TABLET (FP) PO SCH (09:50)
[2023-10-17] MEDS: LOSARTAN POTASSIUM 50 MG TABLET PO SCH (09:51)
[2023-10-17 12:21] LABS: POTASSIUM 4.2 mmol/L (3.5-5.1)
[2023-10-17 12:27] LABS: ALBUMIN 3.6 g/dl (3.4-5.0); BLOOD UREA NITROGEN 23.2 mg/dL (7-18)
[2023-10-17 12:29] LABS: CALCIUM 9.7 mg/dL (8.5-10.1)
[2023-10-17 12:30] LABS: CREATININE 1.3 mg/dL (0.55-1.3); PHOSPHOROUS 3.2 mg/dL (2.5-4.9)
[2023-10-17] MEDS: AMMONIUM LACTATE 12% LOTION 225 GM BOTTLE TP PRN ×2 (13:09→21:02)
[2023-10-17] MEDS: THIAMINE HCL 100 MG TABLET (FP) PO SCH (21:01)
[2023-10-18] MEDS: methaDONE 40 MG, methaDONE 10 MG PO SCH (06:04)
[2023-10-18] MEDS: CEPHALEXIN MONOHYDRATE 500 MG CAPSULE (UD) PO SCH ×3 (06:05→21:17)
[2023-10-18] MEDS: LOSARTAN POTASSIUM 50 MG TABLET PO SCH (10:27)
[2023-10-18] MEDS: PRENATAL VITAMINS W/ FOLIC ACID TABLET (FP) PO SCH (10:27)
[2023-10-18] MEDS: AMMONIUM LACTATE 12% LOTION 225 GM BOTTLE TP PRN ×2 (10:28→21:18)
[2023-10-18] MEDS: THIAMINE HCL 100 MG TABLET (FP) PO SCH (21:17)
[2023-10-19] MEDS: CEPHALEXIN MONOHYDRATE 500 MG CAPSULE (UD) PO SCH ×3 (06:09→21:12)
[2023-10-19] MEDS: methaDONE 40 MG, methaDONE 10 MG PO SCH (06:09)
[2023-10-19] MEDS: LOSARTAN POTASSIUM 50 MG TABLET PO SCH (10:04)
[2023-10-19] MEDS: PRENATAL VITAMINS W/ FOLIC ACID TABLET (FP) PO SCH (10:04)
[2023-10-19] MEDS: AMMONIUM LACTATE 12% LOTION 225 GM BOTTLE TP PRN ×2 (10:05→21:13)
[2023-10-19] MEDS: THIAMINE HCL 100 MG TABLET (FP) PO SCH (21:12)
[2023-10-20] MEDS: methaDONE 40 MG, methaDONE 10 MG PO SCH (06:33)
[2023-10-20] MEDS: CEPHALEXIN MONOHYDRATE 500 MG CAPSULE (UD) PO SCH ×3 (06:33→21:15)
[2023-10-20] MEDS: PRENATAL VITAMINS W/ FOLIC ACID TABLET (FP) PO SCH (09:40)
[2023-10-20] MEDS: LOSARTAN POTASSIUM 50 MG TABLET PO SCH (09:41)
[2023-10-20] MEDS: AMMONIUM LACTATE 12% LOTION 225 GM BOTTLE TP PRN ×2 (09:41→21:16)
[2023-10-20] MEDS: THIAMINE HCL 100 MG TABLET (FP) PO SCH (21:15)
[2023-10-21] MEDS: CEPHALEXIN MONOHYDRATE 500 MG CAPSULE (UD) PO SCH (06:03)
[2023-10-21] MEDS: methaDONE 40 MG, methaDONE 10 MG PO SCH (06:06)
[2023-10-21] MEDS: PRENATAL VITAMINS W/ FOLIC ACID TABLET (FP) PO SCH (09:50)
[2023-10-21] MEDS: AMMONIUM LACTATE 12% LOTION 225 GM BOTTLE TP PRN ×2 (10:00→21:32)
[2023-10-21] MEDS: LOSARTAN POTASSIUM 50 MG TABLET PO SCH (10:00)
[2023-10-21] MEDS ORDERED: diphenhydrAMINE HCL 25 MG CAPSULE (FP) PO PRN (11:54)
[2023-10-21] MEDS: HYDROCORTISONE 0.5% TOPICAL CREAM 30 GM TUBE TP SCH (13:54)
[2023-10-21 15:12] LABS: HEMATOCRIT 34.6 % (35.4-49); HEMOGLOBIN 11.1 GM/dL (11.7-16.9); MCH 31.2 pg (25.7-33.7); MCHC 32.2 g/dl (32.0-35.9); MEAN CELL VOLUME 96.8 fl (80-96); MEAN PLT VOLUME 8.6 fl (7.5-11.1); PLATELET COUNT 284 10^3/uL (134-434); RBC 3.57 M/mm3 (4.00-5.60); RDW 13.2 % (11.9-15.9)
[2023-10-21 15:16] LABS: POTASSIUM 4.4 mmol/L (3.5-5.1)
[2023-10-21 15:18] LABS: ALBUMIN 3.6 g/dl (3.4-5.0); BLOOD UREA NITROGEN 26.1 mg/dL (7-18)
[2023-10-21 15:19] LABS: CALCIUM 8.9 mg/dL (8.5-10.1)
[2023-10-21 15:21] LABS: CREATININE 1.5 mg/dL (0.55-1.3)
[2023-10-21 15:24] LABS: BILIRUBIN,TOTAL 0.2 mg/dL (0.2-1); TOT PROT 7.2 g/dl (6.4-8.2)
[2023-10-21] MEDS: DOXYCYCLINE HYCLATE 100 MG TABLET PO SCH (17:46)
[2023-10-21] MEDS: IBUPROFEN 400 MG TABLET (FP) PO PRN (19:45)
[2023-10-21] MEDS: THIAMINE HCL 100 MG TABLET (FP) PO SCH (21:31)
[2023-10-22] MEDS: methaDONE 40 MG, methaDONE 10 MG PO SCH (06:06)
[2023-10-22] MEDS: HYDROCORTISONE 0.5% TOPICAL CREAM 30 GM TUBE TP SCH (09:41)
[2023-10-22] MEDS: DOXYCYCLINE HYCLATE 100 MG TABLET PO SCH ×2 (09:41→17:01)
[2023-10-22] MEDS: PRENATAL VITAMINS W/ FOLIC ACID TABLET (FP) PO SCH (09:41)
[2023-10-22] MEDS: LOSARTAN POTASSIUM 50 MG TABLET PO SCH (09:41)
[2023-10-22] MEDS ORDERED: LORATADINE 10 MG TABLET PO PRN (10:58)
[2023-10-22] MEDS: FUROSEMIDE 20 MG TABLET (FP) PO SCH (11:35)
[2023-10-22] MEDS: THIAMINE HCL 100 MG TABLET (FP) PO SCH (21:28)
[2023-10-22] MEDS: SUVOREXANT 10 MG TABLET PO PRN (21:29)
[2023-10-22] MEDS: ATORVASTATIN CA 20 MG TABLET (FP) PO SCH (21:29)
[2023-10-22] MEDS: AMMONIUM LACTATE 12% LOTION 225 GM BOTTLE TP PRN (21:30)
[2023-10-22] MEDS ORDERED: SUVOREXANT 5 MG TABLET PO PRN (22:00)
[2023-10-23] MEDS: methaDONE 40 MG, methaDONE 10 MG PO SCH (06:16)
[2023-10-23] MEDS: NIFEdipine E.R 60 MG TABLET PO SCH (09:56)
[2023-10-23] MEDS: DOXYCYCLINE HYCLATE 100 MG TABLET PO SCH ×2 (09:56→17:29)
[2023-10-23] MEDS: DOCUSATE SODIUM 100 MG CAPSULE (FP) PO SCH (09:56)
[2023-10-23] MEDS: LOSARTAN POTASSIUM 50 MG TABLET PO SCH (09:56)
[2023-10-23] MEDS: HYDROCORTISONE 0.5% TOPICAL CREAM 30 GM TUBE TP SCH (09:57)
[2023-10-23] MEDS: FUROSEMIDE 20 MG TABLET (FP) PO SCH (09:57)
[2023-10-23] MEDS: PRENATAL VITAMINS W/ FOLIC ACID TABLET (FP) PO SCH (09:57)
[2023-10-23] MEDS: THIAMINE HCL 100 MG TABLET (FP) PO SCH (21:02)
[2023-10-23] MEDS: ATORVASTATIN CA 20 MG TABLET (FP) PO SCH (21:02)
[2023-10-23] MEDS: SUVOREXANT 10 MG TABLET PO PRN (21:03)
[2023-10-23] MEDS: TRIAMCINOLONE ACET 0.1% 60 ML LOTION TP SCH (21:04)
[2023-10-23] MEDS ORDERED: TRIAMCINOLONE ACET 0.1% 60 ML LOTION TP SCH (22:00)
[2023-10-24] MEDS: methaDONE 40 MG, methaDONE 10 MG PO SCH (06:01)
[2023-10-24] MEDS: IBUPROFEN 400 MG TABLET (FP) PO PRN ×2 (06:03→21:27)
[2023-10-24] MEDS: LOSARTAN POTASSIUM 50 MG TABLET PO SCH (10:09)
[2023-10-24] MEDS: NIFEdipine E.R 60 MG TABLET PO SCH (10:09)
[2023-10-24] MEDS: DOXYCYCLINE HYCLATE 100 MG TABLET PO SCH ×2 (10:09→18:27)
[2023-10-24] MEDS: FUROSEMIDE 20 MG TABLET (FP) PO SCH (10:09)
[2023-10-24] MEDS: DOCUSATE SODIUM 100 MG CAPSULE (FP) PO SCH (10:09)
[2023-10-24] MEDS: TRIAMCINOLONE ACET 0.1% 60 ML LOTION TP SCH ×2 (10:09→21:22)
[2023-10-24] MEDS: PRENATAL VITAMINS W/ FOLIC ACID TABLET (FP) PO SCH (10:09)
[2023-10-24] MEDS: ATORVASTATIN CA 20 MG TABLET (FP) PO SCH (21:20)
[2023-10-24] MEDS: THIAMINE HCL 100 MG TABLET (FP) PO SCH (21:20)
[2023-10-24] MEDS: SUVOREXANT 10 MG TABLET PO PRN (21:21)
[2023-10-25] MEDS: methaDONE 40 MG, methaDONE 10 MG PO SCH (06:13)
[2023-10-25] MEDS: PRENATAL VITAMINS W/ FOLIC ACID TABLET (FP) PO SCH (09:33)
[2023-10-25] MEDS: DOXYCYCLINE HYCLATE 100 MG TABLET PO SCH ×2 (09:33→18:07)
[2023-10-25] MEDS: LOSARTAN POTASSIUM 50 MG TABLET PO SCH (09:33)
[2023-10-25] MEDS: FUROSEMIDE 20 MG TABLET (FP) PO SCH (09:33)
[2023-10-25] MEDS: DOCUSATE SODIUM 100 MG CAPSULE (FP) PO SCH (09:34)
[2023-10-25] MEDS: NIFEdipine E.R 60 MG TABLET PO SCH (09:34)
[2023-10-25] MEDS: TRIAMCINOLONE ACET 0.1% 60 ML LOTION TP SCH ×2 (12:01→21:06)
[2023-10-25] MEDS: MAG HYDROX/AL HYDROX/SIMETH 30 ML UNIT-DOSE CUP PO PRN ×2 (14:43→20:48)
[2023-10-25] MEDS: THIAMINE HCL 100 MG TABLET (FP) PO SCH (21:05)
[2023-10-25] MEDS: ATORVASTATIN CA 20 MG TABLET (FP) PO SCH (21:05)
[2023-10-25] MEDS: SUVOREXANT 10 MG TABLET PO PRN (21:07)
[2023-10-26] MEDS: methaDONE 40 MG, methaDONE 10 MG PO SCH (05:59)
[2023-10-26] MEDS: DOCUSATE SODIUM 100 MG CAPSULE (FP) PO SCH (10:39)
[2023-10-26] MEDS: PRENATAL VITAMINS W/ FOLIC ACID TABLET (FP) PO SCH (10:39)
[2023-10-26] MEDS: LOSARTAN POTASSIUM 50 MG TABLET PO SCH (10:39)
[2023-10-26] MEDS: NIFEdipine E.R 60 MG TABLET PO SCH (10:39)
[2023-10-26] MEDS: DOXYCYCLINE HYCLATE 100 MG TABLET PO SCH ×2 (10:39→18:01)
[2023-10-26] MEDS: TRIAMCINOLONE ACET 0.1% 60 ML LOTION TP SCH ×2 (10:44→22:13)
[2023-10-26] MEDS: FUROSEMIDE 20 MG TABLET (FP) PO SCH (11:53)
[2023-10-26] MEDS: SUVOREXANT 10 MG TABLET PO PRN (21:02)
[2023-10-26] MEDS: THIAMINE HCL 100 MG TABLET (FP) PO SCH (21:02)
[2023-10-26] MEDS: ATORVASTATIN CA 20 MG TABLET (FP) PO SCH (21:02)
[2023-10-27] MEDS: methaDONE 40 MG, methaDONE 10 MG PO SCH (06:03)
[2023-10-27] MEDS: NIFEdipine E.R 60 MG TABLET PO SCH (09:52)
[2023-10-27] MEDS: TRIAMCINOLONE ACET 0.1% 60 ML LOTION TP SCH ×2 (09:52→21:25)
[2023-10-27] MEDS: DOXYCYCLINE HYCLATE 100 MG TABLET PO SCH ×2 (09:52→18:26)
[2023-10-27] MEDS: DOCUSATE SODIUM 100 MG CAPSULE (FP) PO SCH (09:52)
[2023-10-27] MEDS: FUROSEMIDE 20 MG TABLET (FP) PO SCH (09:52)
[2023-10-27] MEDS: LOSARTAN POTASSIUM 50 MG TABLET PO SCH (09:52)
[2023-10-27] MEDS: PRENATAL VITAMINS W/ FOLIC ACID TABLET (FP) PO SCH (09:53)
[2023-10-27] MEDS: THIAMINE HCL 100 MG TABLET (FP) PO SCH (21:24)
[2023-10-27] MEDS: ATORVASTATIN CA 20 MG TABLET (FP) PO SCH (21:24)
[2023-10-27] MEDS: SUVOREXANT 10 MG TABLET PO PRN (21:25)
[2023-10-28] MEDS: methaDONE 40 MG, methaDONE 10 MG PO SCH (06:10)
[2023-10-28] MEDS: PRENATAL VITAMINS W/ FOLIC ACID TABLET (FP) PO SCH (09:37)
[2023-10-28] MEDS: DOXYCYCLINE HYCLATE 100 MG TABLET PO SCH ×2 (09:37→17:10)
[2023-10-28] MEDS: DOCUSATE SODIUM 100 MG CAPSULE (FP) PO SCH (09:37)
[2023-10-28] MEDS: LOSARTAN POTASSIUM 50 MG TABLET PO SCH (09:37)
[2023-10-28] MEDS: FUROSEMIDE 20 MG TABLET (FP) PO SCH (09:37)
[2023-10-28] MEDS: NIFEdipine E.R 60 MG TABLET PO SCH (09:37)
[2023-10-28] MEDS: TRIAMCINOLONE ACET 0.1% 60 ML LOTION TP SCH ×2 (09:38→21:20)
[2023-10-28] MEDS: ATORVASTATIN CA 20 MG TABLET (FP) PO SCH (21:19)
[2023-10-28] MEDS: THIAMINE HCL 100 MG TABLET (FP) PO SCH (21:19)
[2023-10-28] MEDS: SUVOREXANT 10 MG TABLET PO PRN (21:20)
[2023-10-28] MEDS ORDERED: SUVOREXANT 10 MG TABLET PO PRN (22:00)
[2023-10-29] MEDS: methaDONE 40 MG, methaDONE 10 MG PO SCH (06:21)
[2023-10-29 09:05] VITALS: RESP 18
[2023-10-29] MEDS: DOCUSATE SODIUM 100 MG CAPSULE (FP) PO SCH (10:19)
[2023-10-29] MEDS: PRENATAL VITAMINS W/ FOLIC ACID TABLET (FP) PO SCH (10:19)
[2023-10-29] MEDS: NIFEdipine E.R 60 MG TABLET PO SCH (10:19)
[2023-10-29] MEDS: LOSARTAN POTASSIUM 50 MG TABLET PO SCH (10:19)
[2023-10-29] MEDS: FUROSEMIDE 20 MG TABLET (FP) PO SCH (10:20)
[2023-10-29] MEDS: TRIAMCINOLONE ACET 0.1% 60 ML LOTION TP SCH ×2 (10:36→21:21)
[2023-10-29] MEDS: MAG HYDROX/AL HYDROX/SIMETH 30 ML UNIT-DOSE CUP PO PRN (15:51)
[2023-10-29] MEDS: THIAMINE HCL 100 MG TABLET (FP) PO SCH (21:20)
[2023-10-29] MEDS: ATORVASTATIN CA 20 MG TABLET (FP) PO SCH (21:20)
[2023-10-30] MEDS: methaDONE 40 MG, methaDONE 10 MG PO SCH (06:05)
[2023-10-30 07:00] VITALS: TEMP 97.8
[2023-10-30 09:11] VITALS: BP 144/75; PULSE 84
[2023-10-30] MEDS: TRIAMCINOLONE ACET 0.1% 60 ML LOTION TP SCH (09:17)
[2023-10-30] MEDS: PRENATAL VITAMINS W/ FOLIC ACID TABLET (FP) PO SCH (09:17)
[2023-10-30] MEDS: FUROSEMIDE 20 MG TABLET (FP) PO SCH (09:18)
[2023-10-30] MEDS: LOSARTAN POTASSIUM 50 MG TABLET PO SCH (09:18)
[2023-10-30] MEDS: NIFEdipine E.R 60 MG TABLET PO SCH (09:18)
[2023-10-30] MEDS: DOCUSATE SODIUM 100 MG CAPSULE (FP) PO SCH (09:18)
== END 2023-10-30 09:35 | disposition home or self-care (01) | DRG 772 ==
LOC: YASAS 16:53 → Y3W 23:14
PROVIDERS: ADMIT Allergy & Immunology; ATTEND Psychiatry & Neurology Pain Medicine
PROC: HZ42ZZZ Group Counseling for Substance Abuse Treatment, Cognitive-Behavioral (ICD-10-PCS; principal; 2023-10-16)
DX: F10.20 Alcohol dependence, uncomplicated (principal); F11.20 Opioid dependence, uncomplicated; G47.00 Insomnia, unspecified; I10 Essential (primary) hypertension; K21.9 Gastro-esophageal reflux disease without esophagitis; E78.5 Hyperlipidemia, unspecified; L03.115 Cellulitis of right lower limb; L03.116 Cellulitis of left lower limb; R21 Rash and other nonspecific skin eruption; Z86.11 Personal history of tuberculosis; Z87.891 Personal history of nicotine dependence; Z88.1 Allergy status to other antibiotic agents
CPT/HCPCS: 36415; 80053; 80069; 85027; 87635